=== PATIENT | female | born 1950 | race Caucasian/White ===

== ENCOUNTER 2017-09-16 09:53 | Outpatient (CLI) | payer MEDICARE, BC ==
--- NOTE | 2017-09-16 13:10 | MRI ---
MRI LUMBAR SPINE NONCONTRAST: DATE: 09/16/17. HISTORY: A 67-year-old female with: M54.32, left-sided sciatica. M54.42, lumbago with sciatica, left side. COMPARISON: None. FINDINGS: There is an S-shaped lateral curvature of the lumbar spine associated with asymmetrical right-left di stribution of degenerative disk disease and degenerative facet disease, worse along the concave sides of the curvature, which is on the left at L1-2 and L2-3, and on the right at L3-4, L4-5, and L5-S1. There is high-grade disk space narrowing at all levels from L1-2 through L4-5. Diffuse disk bulges throughout all of those levels. Degenerative facet changes become progressively worse at lower level s, moderate to severe at L4-5 and severe at L5-S1. No major spondylolisthesis. Modic type I changes along the right, concave side of the end plates at L1-2. The findings regarding the spinal canal an d neural foramina are as follows: T12-L1: No high-grade neural foraminal stenosis. Mild central spinal canal stenosis. The conus med ullaris terminates at mid L1 level. L1-2: Mild central spinal canal stenosis. No right neural foraminal stenosis. Mild left neural for aminal stenosis. L2-3: Ligamentum flavum thickening and disk bulge result in moderate to severe central spinal canal stenosis, and severe thecal sac stenosis. Mild to moderate right neural foraminal stenosis. No sign ificant left neural foraminal stenosis. L3-4: Moderately thickened ligamentum flavum and a disk bulge result in moderate to severe central s gretel canal stenosis and moderate to severe thecal sac stenosis. Mild bilateral neural foraminal adan nosis. L4-5: Moderate to severe central spinal canal stenosis and moderate to severe thecal sac stenosis. Mild right neural foraminal stenosis. Moderate left neural foraminal stenosis. L5-S1: Disk space is maintained. No central spinal canal stenosis. Mild to moderate bilateral neura l foraminal stenosis, left worse than right. IMPRESSION: 1. Lumbar spondylosis, with multilevel high-grade degenerative disk disease and multilevel facet oste oarthrosis. 2. Moderate to severe central spinal canal stenosis at L2-3, L3-4, and L4-5. 3. Scoliosis. JN R POS: [facility]
== END 2017-09-16 09:54 | disposition home or self-care (01) ==
LOC: SCSMRI 09:53
PROVIDERS: ATTEND Physician Assistant
DX: M54.42 Lumbago with sciatica, left side (principal); M47.896 Other spondylosis, lumbar region; M48.061 Spinal stenosis, lumbar region without neurogenic claudication; M41.86 Other forms of scoliosis, lumbar region
CPT/HCPCS: 72148

== ENCOUNTER 2018-03-04 07:02 | Outpatient (CLI) | payer MEDICARE, BC ==
[2018-03-04 07:40] LABS: Anion Gap 12 mmol/L (10-20); BUN (Urea Nitrogen) 19 mg/dL (9.8-20.1); Calc. Creatinine Clearance 0 mL/min (70-130); Carbon Dioxide 29 mmol/L (23-31); Chloride 105 mmol/L (98-107); Estimated GFR-MDRD 65; Glucose 89 mg/dL (80-115); Sodium 142 mmol/L (136-145)
--- NOTE | 2018-03-04 08:16 | ULT ---
BILATERAL RENAL ULTRASOUND: Date: 03/04/18 HISTORY: Chronic kidney disease. COMPARISON: None. TECHNIQUE: Sagittal and transverse imaging of the kidneys performed. FINDINGS: Limited evaluation of both renal cortices. No obvious cortical masses. There is bilateral renal corti jewell thinning. Bilaterally, no hydronephrosis. Right kidney measures 10.2 x 4.3 x 4.7 cm. Left kidney measures 4.5 x 3.7 x 11.1 cm. Bladder is poorly defined due to inadequate distention. IMPRESSION: 1. No hydronephrosis. 2. Bilateral renal cortical thinning. POS: [facility]
[2018-03-04 11:25] LABS: Creatinine, Urine 49.69 mg/dL (47-110); Protein, Urine Random Quant Less than 10 mg/dL (1-14)
== END 2018-03-04 07:03 | disposition home or self-care (01) ==
LOC: SCSULT 07:02
PROVIDERS: ATTEND Internal Medicine Nephrology
DX: N18.3 Chronic kidney disease, stage 3 (moderate) (principal); N28.89 Other specified disorders of kidney and ureter
CPT/HCPCS: 36415; 76770; 80048; 82570; 84156

== ENCOUNTER 2018-04-01 14:47 | Outpatient (CLI) | payer MEDICARE, BC ==
--- NOTE | 2018-04-01 16:32 | BD ---
BONE DENSITOMETRY USING DEXA: Date: 04/01/18 HISTORY: Postmenopausal screening for osteoporosis. FINDINGS: Lumbar Spine: BMD (g/cm2) L1 1.373 T-Score: 3.5 Z-Score: 5.3 L2 1.456 T-Score: 3.9 Z-Score: 6.0 L3 1.483 T-Score: 3.6 Z-Score: 5.8 L4 1.530 T-Score: 4.3 Z-Score: 6.5 L1-L4 1.464 T-Score: 3.8 Z-Score: 5.9 Femoral Neck: 0.856 T-Score: 0.1 Z-Score: 1.9 Total Femur: 1.05 T-Score: 0.9 Z-Score: 2.4 IMPRESSION: Normal bone mineral density. No evidence of osteopenia/osteoporosis. POS: [facility]
== END 2018-04-01 14:48 | disposition home or self-care (01) ==
LOC: BICMAMMO 14:47
PROVIDERS: ATTEND Physician Assistant
DX: Z12.31 Encounter for screening mammogram for malignant neoplasm of breast (principal); Z13.820 Encounter for screening for osteoporosis
CPT/HCPCS: 77063; 77067; 77080

== ENCOUNTER 2019-04-11 10:43 | Outpatient (CLI) | payer MEDICARE, BC ==
--- NOTE | 2019-04-11 11:58 | RAD ---
EXAM: Lumbar spine 3 views DATE: 04/11/2019 12:00 AM INDICATION: Lumbar radiculopathy COMPARISON: Lumbar spinal MR dated 09/16/2017. FINDING: No abnormal translational motion is evident. Mild retrolisthesis of L2 on L3 and L3 -4 is stable. Adv anced multilevel disc degenerative and facet osteoarthritic change is present and similar to comparison MR examination dated 09/16/2017. No acute fracture or subluxation is evident. IMPRESSION:Spondylosis of lumbar spine. No abnormal translational motion.
--- NOTE | 2019-04-11 12:01 | MRI ---
MRI lumbar spine noncontrast HISTORY: Low back pain. Left leg radiculopathy. COMPARISON: 09/16/2017. FINDINGS: The conus medullaris has normal appearance. There is S-shaped rotatory scoliotic curvature. Vertebral body heights are maintained. Scattered discogenic changes throughout the bone marrow. No focal edema. Mild disc bulges at the partially visualized lower thoracic spine. T12-L1: Disc space narrowing. Prominent osseous hypertrophy of the facets. Thecal sac remains patent. Mild right foraminal stenosis. L1-2: Disc space narrowing. Minimal degenerative spondylolisthesis. Posterior disc bulge. Prominent p osterior ligamentous thickening and osseous hypertrophy of the facets. No significant central canal stenosis. Mild to moderate stenosis of the left neural foramen. L2-3: Disc space narrowing and minimal degenerative retrolisthesis. Prominent posterior disc bulge an d circumferential degenerative changes. Moderate to severe stenosis of the central canal. Moderate right and severe left foraminal stenoses. L3-4: Disc space narrowing and minimal degenerative retrolisthesis. Posterior disc bulge and circumfe rential degenerative changes. Moderate to severe stenosis of the central canal. Moderate to severe right and moderate left foraminal stenoses. L4-5: Posterior disc bulge and circumferential degenerative changes. Severe stenosis of the central c anal. Moderate to severe right and severe left foraminal stenoses. L5-S1: Mild disc bulge. Degenerative changes of the facets. Thecal sac is patent. Severe bilateral fo raminal stenoses. IMPRESSION: Prominent multilevel degenerative changes throughout the lumbar spine, including signific ant central canal and foraminal stenoses as detailed above. Slightly progressed since the previous exam.
== END 2019-04-11 10:44 | disposition home or self-care (01) ==
LOC: SCSMRI 10:43
PROVIDERS: ATTEND Neurological Surgery
DX: M47.26 Other spondylosis with radiculopathy, lumbar region (principal); M48.061 Spinal stenosis, lumbar region without neurogenic claudication; M48.07 Spinal stenosis, lumbosacral region
CPT/HCPCS: 72100; 72148

== ENCOUNTER 2019-04-24 12:51 | Outpatient (CLI) | payer MEDICARE, BC ==
--- NOTE | 2019-04-24 17:07 | MRI ---
Brain MRI with and without contrast: 04/24/2019 COMPARISON: None HISTORY: Anosmia TECHNIQUE: Multiplanar multisequence MR imaging of the brain obtained with and without contrast FINDINGS: The diffusion weighted imaging demonstrates no evidence for acute infarction. The gradient echo imaging demonstrates no evidence for intracranial hemorrhage. The arterial flow voids appear grossly unremarkable on the axial T2-weighted imaging. There are numerous foci of increased T2 and FLAIR signal within the periventricular, deep, and subcor tical white matter, evidence of significant small vessel disease. The postcontrast imaging demonstrates no abnormal enhancement within the brain parenchyma. The paranasal sinuses/mastoid air cells demonstrate normal signal intensity. No mass effect/mass lesion or abnormal enhancement is seen along the course of the olfactory nerves/c ribriform plate. IMPRESSION: Prominent small vessel disease. No acute findings.
== END 2019-04-24 12:52 | disposition home or self-care (01) ==
LOC: SCSMRI 12:51
PROVIDERS: ATTEND Student in an Organized Health Care Education/Training Program
DX: R43.0 Anosmia (principal); I73.9 Peripheral vascular disease, unspecified
CPT/HCPCS: 70553

== ENCOUNTER 2019-05-15 05:56 | Outpatient (CLI) | payer MEDICARE, BC ==
[2019-05-15 13:09] LABS: Hemoglobin 14.2 g/dL (12.0-16.0); Mean Corpuscular HGB CONC 32.6 g/dL (32.0-36.0); Mean Corpuscular Hemoglobin 30.4 pg (27.0-31.0); Mean Corpuscular Volume 93.1 fL (78.0-98.0); Mean Platelet Volume 7.2 fL (7.4-10.4); Platelet Count 229 thou/uL (130-400); RBC Distribution Width 12.3 % (11.5-14.5); Red Blood Cell (RBC) Count 4.67 mill/uL (4.20-5.40); White Blood Cell (WBC) Count 9.3 thou/uL (4.8-10.8)
[2019-05-15 13:10] LABS: PTT 25.8 SEC (22.9-36.1); Prothrombin Time 13.2 SEC (12.0-14.7)
== END 2019-05-15 05:57 | disposition home or self-care (01) ==
LOC: LABBT 05:56
PROVIDERS: ATTEND Neurological Surgery
DX: Z01.812 Encounter for preprocedural laboratory examination (principal); M48.062 Spinal stenosis, lumbar region with neurogenic claudication
CPT/HCPCS: 85027; 85610; 85730

== ENCOUNTER 2019-05-19 05:46 | Day surgery (SDC) | payer MEDICARE, BC ==
[2019-05-15 11:39] VITALS: BMI 29.1
--- NOTE | 2019-05-18 07:00 | HP ---
REASON FOR ADMISSION: "I'm here for my back surgery," for the date of admission, 05/19/2019. HISTORY OF PRESENT ILLNESS: Shannan Garcia is a very pleasant 69-year-old woman, who has been followed in our Neurosurgery Clinic for back and leg pain. At first, we managed some bursitis pain with stretching and injections, but she returned with pain in the back radiating down the posterior thigh to the calf, the ankle, and the foot. The pain was worse with standing and better leaning over the shopping cart. If she leaned over kitchen counter, it also got better. The pain went away with sitting. Due to the severe lumbar stenosis, we offered her decompression operation and she has elected to proceed. She is here for that surgery today. PAST MEDICAL HISTORY: Hypothyroidism, hypertension, occasional sinusitis, benign paroxysmal positional vertigo, chronic renal insufficiency, and hyperlipidemia. MEDICATIONS: 1. Diltiazem. 2. Metoprolol. 3. Macrobid. 4. Premarin. 5. Magnesium. 6. Cytochrome Q10. 7. Vitamin B complex. 8. Colace. 9. Flonase. 10. Pramipexole dihydrochloride. 11. ProAir HFA. 12. Tylenol p.r.n. 13. Metronidazole cream. 14. Bupropion. 15. Meclizine p.r.n. 16. [place] Thyroid. 17. Gabapentin. 18. Singulair. 19. Levothyroxine. ALLERGIES: TO CECLOR, PENICILLIN, ALUPENT, AND CODEINE. CODEINE CAUSES NAUSEA AND VOMITING. PAST SURGICAL HISTORY: Hysterectomy without oophorectomy, nasal fracture repair. HOSPITALIZATIONS: Asthma exacerbation and vasovagal syncope. FAMILY HISTORY: Father was from prostate cancer and he had ulcerative colitis, hypertension, and Alzheimer's. Her mother was . She had chronic depression and dementia. She has a strong family history for hypertension in her siblings. SOCIAL HISTORY: Ms. Garcia is a nonsmoker. She does not use alcohol or illicit drugs. She is currently living alone. She has 2 adult children. PHYSICAL EXAMINATION: NEUROLOGIC: The patient is awake and alert. She has spontaneous and fluent speech with no dysphasia. Cranial nerves: Intact. Motor examination: She has good strength in the hip flexors to quadriceps, the hamstrings, the anterior tib, the EHL, the gastrocnemius, and the toe flexors. Sensory examination: There is no area of dermatomal sensory loss in lower extremities. Reflexes: Reflexes are diminished, but symmetric at the knees and ankles. There is no Babinski. Gait: Normal. ADMISSION FINDINGS AND TEST RESULTS: MR imaging of the lumbar spine shows severe spinal stenosis at L2-L3, L3-L4, and L4-L5. Flexion and extension radiographs do not show overt instability. ASSESSMENT: Neurogenic claudication from severe lumbar stenosis. PLAN: We offered a laminectomy at L2-L3, L3-L4, and L4-L5 with foraminotomies. Informed consent: In the office, we discussed indications, risks, benefits, alternatives, and expected outcomes from surgery. The risks we discussed included, but were not limited to, bleeding, infection, CSF leak, nerve damage, weakness, incontinence, cauda equina injury, arachnoiditis, paralysis, ventilator dependence, wheelchair dependence, loss of vision, cardiopulmonary complications of anesthesia, and . Long-term complications discussed included, but were not limited to, spinal instability, and future surgery. She understands the risks and is willing to proceed. We will take Ms. Garcia to the operating room for laminectomy. Job ID: [id number]
[2019-05-19] MEDS ORDERED: Clindamycin/D5W 900 mg/50 ml Premix Bag ONE ×2 (06:03→13:36)
[2019-05-19] MEDS ORDERED: Levofloxacin 500 mg/D5W 100 ml Premix Bag ONE (06:03)
[2019-05-19] MEDS ORDERED: Bupivacaine PF 0.5% 30 ML VIAL ONE (06:12)
[2019-05-19] MEDS ORDERED: Thrombin 5000 UNITS/5 ML VIAL ONE (06:12)
[2019-05-19] MEDS ORDERED: Sodium Chloride 0.9% 10 ML ONE (06:12)
[2019-05-19] MEDS ORDERED: Fentanyl 250 MCG/5 ML VIAL ONE (06:21)
[2019-05-19] MEDS ORDERED: Ondansetron PF 4 MG/2 ML Vial IVP PRN (06:26)
[2019-05-19] MEDS ORDERED: Morphine 4 MG/ML VIAL SLOW IVP PRN (06:26)
[2019-05-19] MEDS ORDERED: diphenhydrAMINE 50 MG/ML VIAL IVP PRN (06:26)
[2019-05-19] MEDS ORDERED: traMADol HCl 50 MG TAB PO PRN ×2 (06:26)
[2019-05-19] MEDS ORDERED: Morphine 2 MG/ML SYRINGE SLOW IVP PRN (06:26)
[2019-05-19] MEDS ORDERED: Promethazine HCl 12.5 MG SUPP PR PRN (06:26)
[2019-05-19] MEDS ORDERED: Acetaminophen 325 MG TAB PO PRN (06:26)
[2019-05-19] MEDS ORDERED: tiZANidine HCl 4 MG TAB PO PRN (06:26)
[2019-05-19] MEDS ORDERED: Acetaminophen 650 MG Suppository PR PRN (06:26)
[2019-05-19] MEDS ORDERED: Promethazine 25 MG TAB PO PRN (06:26)
[2019-05-19] MEDS ORDERED: diphenhydrAMINE 25 MG CAP PO PRN (06:26)
[2019-05-19] MEDS ORDERED: Promethazine HCl 25 MG/ML VIAL IM PRN (06:26)
[2019-05-19] MEDS ORDERED: Sodium Chloride 0.9% 1,000 ML IV SCH (06:30)
[2019-05-19] MEDS ORDERED: SUGAMMADEX SODIUM 200 MG/2 ML VIAL ONE (09:36)
--- NOTE | 2019-05-19 09:45 | OP ---
DATE OF PROCEDURE: 05/19/2019 EYELET CUTTER: None. PREOPERATIVE INDICATION: Treat pain and prevent neurological deterioration. PREOPERATIVE DIAGNOSIS: Multilevel lumbar stenosis with severe neurogenic claudication. POSTOPERATIVE DIAGNOSIS: Multilevel lumbar stenosis with severe neurogenic claudication. PROCEDURE PERFORMED: Decompressive laminectomy, medial facetectomy, foraminotomy L2-L3, L3-L4, L4-L5. PREOPERATIVE MEDICATIONS: Ancef 2 g IV. DRAIN NUMBER: Zero. DRAIN TYPE: None. DESCRIPTION OF PROCEDURE: The patient was brought to the operating room. General endotracheal anesthesia was induced. The patient was positioned prone with the chest and hips supported by gel-filled chest rolls. A lateral fluoro radiograph was used to plan our incision. The lumbar skin was sterilely prepped and draped. We opened with a 10 blade knife and controlled bleeding with bipolar and monopolar cautery. We used monopolar cautery to dissect through subcutaneous tissues to the thoracodorsal fascia. We incised the fascia in the midline and reflected the paraspinal muscles off the spinous process and lamina of L2, L3, L4 and the top of L5. A self-retaining retractor was placed and a lateral fluoro radiograph confirmed the levels upon which we were operating. We then used an Adson rongeur to remove the spinous processes from L2 to the top of L5. Kerrison rongeurs were used to fashion a laminectomy down the midline. We widened our laminectomy defect by performing medial facetectomies and removing overgrown facet joints as well as thickened ligament in the lateral recesses at L2-L3, L3-L4, and L4-L5. We performed foraminotomies over the exiting L2, L3, L4 and L5 nerve roots until a Collins ball probe could pass from the canal out of the spine without impingement. We irrigated with bacitracin irrigation. We waxed the bone edges. We closed the wound in anatomical layers and we applied a sterile dressing. This was a clean case, no contamination. Job ID: [id number]
[2019-05-19] MEDS ORDERED: Fentanyl 100 MCG/2 ML VIAL ONE ×2 (09:53→10:20)
[2019-05-19] MEDS ORDERED: Ondansetron PF 4 MG/2 ML Vial ONE (10:38)
[2019-05-19] MEDS ORDERED: Dexamethasone 20 MG/5 ML VIAL ONE (10:38)
[2019-05-19] MEDS ORDERED: Lidocaine 1% PF 5 ML VIAL ONE (10:38)
[2019-05-19] MEDS ORDERED: Rocuronium Bromide 10 MG/ML (10ML VIAL) ONE (10:38)
[2019-05-19] MEDS ORDERED: PHENYLEPHRINE-NS 100 MCG/ML 10 ML SYRINGE ONE (10:38)
[2019-05-19] MEDS ORDERED: PROPOFOL 200 MG/20 ML VIAL ONE (10:38)
[2019-05-19] MEDS ORDERED: ePHEDrine/0.9% NaCl/PF SYRINGE 50 mg/10 ml ONE (10:38)
[2019-05-19] MEDS ORDERED: Glycopyrrolate 0.2 MG/ML 5 ML SYRINGE ONE (10:38)
[2019-05-19] MEDS ORDERED: HYDROcodone/Acetaminophen 5/325 mg Tablet ONE (11:30)
[2019-05-19] MEDS ORDERED: Clindamycin/D5W 900 MG in Premix Bag 1 BAG IVPB SCH (14:00)
== END 2019-05-19 14:45 | disposition home or self-care (01) ==
LOC: SDC 05:46
PROVIDERS: ATTEND Neurological Surgery
PROC: 01NB0ZZ Release Lumbar Nerve, Open Approach (ICD-10-PCS; principal; 2019-05-19)
DX: M48.062 Spinal stenosis, lumbar region with neurogenic claudication (principal); J45.909 Unspecified asthma, uncomplicated; E03.9 Hypothyroidism, unspecified; F32.9 Major depressive disorder, single episode, unspecified; H81.10 Benign paroxysmal vertigo, unspecified ear; E78.5 Hyperlipidemia, unspecified; I12.9 Hypertensive chronic kidney disease with stage 1 through stage 4 chronic kidney disease, or unspecified chronic kidney disease; N18.9 Chronic kidney disease, unspecified; G25.81 Restless legs syndrome; Z79.899 Other long term (current) drug therapy; Z88.0 Allergy status to penicillin; Z88.1 Allergy status to other antibiotic agents; Z88.5 Allergy status to narcotic agent; Z88.8 Allergy status to other drugs, medicaments and biological substances
CPT/HCPCS: 76000; J1100; J1956; J2001; J2405; J2704; J3010; J3370; J3490; S0020

== ENCOUNTER 2019-05-22 13:47 | Outpatient (CLI) | payer MEDICARE, BC ==
--- NOTE | 2019-05-22 14:05 | RAD ---
TWO VIEWS LUMBAR SPINE: COMPARISON: 04/11/2019. HISTORY: Lumbar stenosis with claudication. Recent fall. FINDINGS: Leftward curvature of the lumbar spine. Laminectomy defect at L2, L3 and L4. Lateral projection demonstrates stable loss of disc space height and spondylolisthesis. Overlying skin fareed are noted. No evidence of fracture. IMPRESSION: 1. Findings compatible with a recent extensive laminectomy involving multiple levels. 2. No evidence of fracture. Transcribed Date/Time: 05/22/2019 2:20 PM
== END 2019-05-22 13:48 | disposition home or self-care (01) ==
LOC: SCSRAD 13:47
PROVIDERS: ATTEND Neurological Surgery
DX: M48.062 Spinal stenosis, lumbar region with neurogenic claudication (principal); Z98.890 Other specified postprocedural states
CPT/HCPCS: 72100

== ENCOUNTER 2020-09-24 09:27 | Outpatient (CLI) | payer MEDICARE, BC | END 2020-09-24 09:28 | disposition home or self-care (01) | LOC: BICULT 09:27 | PROVIDERS: ATTEND Physician Assistant Medical | DX: R93.3 Abnormal findings on diagnostic imaging of other parts of digestive tract (principal); R68.81 Early satiety; R63.4 Abnormal weight loss | CPT/HCPCS: 76856 ==

== ENCOUNTER 2021-01-01 11:14 | Outpatient (CLI) | payer MEDICARE, BC | END 2021-01-01 11:15 | disposition home or self-care (01) | LOC: BICMAMMO 11:14 | PROVIDERS: ATTEND Physician Assistant | DX: Z12.31 Encounter for screening mammogram for malignant neoplasm of breast (principal) | CPT/HCPCS: 77063; 77067 ==

== ENCOUNTER 2021-04-28 08:45 | Outpatient (CLI) | payer MEDICARE, BC ==
[2021-04-28 15:14] LABS: Hemoglobin A1c 4.7 % (4.0-6.0)
== END 2021-04-28 08:46 | disposition home or self-care (01) ==
LOC: SCSRAD 08:45
PROVIDERS: ATTEND Psychiatry & Neurology Neurology
DX: R26.81 Unsteadiness on feet (principal)
CPT/HCPCS: 36415; 72100; 82525; 82607; 82746; 83036

== ENCOUNTER 2021-04-28 09:47 | Outpatient (CLI) | payer MEDICARE, BC | END 2021-04-28 09:48 | disposition home or self-care (01) | LOC: BICRAD 09:47 | PROVIDERS: ATTEND Family Medicine | DX: M79.601 Pain in right arm (principal); W19.XXXA Unspecified fall, initial encounter | CPT/HCPCS: 36415; 72100; 82525; 82607; 82746; 83036 ==

== ENCOUNTER 2021-05-08 13:47 | Outpatient (CLI) | payer MEDICARE, BC | END 2021-05-08 13:48 | disposition home or self-care (01) | LOC: SCSMRI 13:47 | PROVIDERS: ATTEND Orthopaedic Surgery | DX: M50.10 Cervical disc disorder with radiculopathy, unspecified cervical region (principal); M48.02 Spinal stenosis, cervical region; G95.20 Unspecified cord compression | CPT/HCPCS: 72141 ==

== ENCOUNTER 2021-09-11 12:31 | Emergency (ER) | payer OTHER, MEDICARE, BC ==
[2021-09-11] MEDS ORDERED: Lidocaine 4% Cream 5 GM TUBE w/ Tegaderm ONE (14:37)
== END 2021-09-11 14:44 | disposition home or self-care (01) ==
LOC: ERS 12:31
DX: S01.01XA Laceration without foreign body of scalp, initial encounter (principal); I10 Essential (primary) hypertension; E03.9 Hypothyroidism, unspecified; Z79.899 Other long term (current) drug therapy; W01.0XXA Fall on same level from slipping, tripping and stumbling without subsequent striking against object, initial encounter
CPT/HCPCS: 12001; 70450; 72125